=== PATIENT | male | born 1945 | race Caucasian/White ===

== ENCOUNTER 2017-02-08 05:01 | Emergency (ER) | payer OTHER ==
[~2017-02-08] VITALS: Ht 188 cm; Wt 122.2 kg
[~2017-02-08 05:01] MED LIST: ALL DAY ALLERGY10 M2 PO; ALTACE10 MG PO; ASPIR 8181 MG PO; ASPIR-LOW81 MG PO; FOLIC ACID1 MG PO; LIPITOR20 MG PO; LOPRESSOR25 MG PO; METOPROLOL TART25 MG PO; NIASPAN,SLO-N1000 MG PO; VITAMIN D31000 UNI2 PO
[2017-02-08] MEDS ORDERED: AFRIN,GENASAL D15 ML BOTH NARES (06:14)
[2017-02-08] MEDS ORDERED: AUGMENTIN875 MG PO (06:14)
[2017-02-08] MEDS ORDERED: TESSALON PERLE100 MG PO (06:14)
[2017-02-08 07:17] VITALS: BP 139/68
== END 2017-02-08 07:19 | disposition home or self-care (01) ==
LOC: EME 05:01
DX: B34.9 Viral infection, unspecified (principal); J01.90 Acute sinusitis, unspecified; J02.9 Acute pharyngitis, unspecified; R05 Cough; I10 Essential (primary) hypertension; E78.5 Hyperlipidemia, unspecified; Z95.1 Presence of aortocoronary bypass graft; Z79.82 Long term (current) use of aspirin; Z87.891 Personal history of nicotine dependence
CPT/HCPCS: 70360; 71020; 87651 90; 99281; 99284

== ENCOUNTER 2017-12-09 23:23 | Inpatient (IN) | payer OTHER ==
[~2017-12-09] VITALS: Ht 188 cm; Wt 127.7 kg
[~2017-12-09 23:23] MED LIST changes: +AFRIN,GENASAL D15 ML BOTH NARES; +AUGMENTIN875 MG PO; +TESSALON PERLE100 MG PO
[2017-12-10 00:05] LABS: HEMATOCRIT 43.7 % (38.0-50.0); HEMOGLOBIN 15.4 G/DL (12.5-16.6); MCH 30.6 PG (29.0-34.0); MCHC 35.2 G/DL (30.0-36.0); MCV 86.9 FL (86-99); PLATELET COUNT 169 K/uL (156-360); RBC DIS.WIDTH-SD 40.9 % (39-53); RED BLOOD COUNT 5.03 M/uL (4.00-5.50); WHITE BLOOD COUNT 9.7 K/uL (4.1-10.2)
[2017-12-10 00:14] LABS: ALBUMIN 4.1 g/dL (3.2-4.8); CHLORIDE 107 mEq/L (99-109); POTASSIUM 3.8 mEq/L (3.7-5.4); SODIUM 142 mEq/L (136-147)
[2017-12-10 00:16] LABS: GLUCOSE 129 mg/dL (70-99); TOTAL PROTEIN 6.4 g/dL (6.4-8.3)
[2017-12-10 00:18] LABS: TOTAL BILIRUBIN 3.3 mg/dL (0.0-1.0)
[2017-12-10 00:20] LABS: ALKALINE PHOSPHATASE 131 IU/L (3-129); CREATININE 0.9 mg/dL (0.6-1.3); GFR ESTIMATE (CALCULATED) > 59 mL/min/ (58.99-99999)
[2017-12-10 00:21] LABS: AST (GOT) 225 IU/L (2-34); UREA NITROGEN (BUN) 21 mg/dL (9-23)
[2017-12-10 00:22] LABS: DIRECT BILIRUBIN 2.1 mg/dL (0.0-0.3)
[2017-12-10 00:23] LABS: ALT (GPT) 154 IU/L (3-49); LIPASE 39 U/L (1.0-51.0)
[2017-12-10 00:38] LABS: APPEARANCE CLEAR ((CLEAR)); BILIRUBIN NEGATIVE; BLOOD NEGATIVE; COLOR YELLOW ((YELLOW)); GLUCOSE (STRIP) NEGATIVE; KETONES NEGATIVE; LEUKOCYTES NEGATIVE; NITRITE NEGATIVE; PROTEIN (STRIP) NEGATIVE; SPECIFIC GRAVITY 1.016 (1.000-1.030); UCUL ADDED? NO
[2017-12-10] MEDS ORDERED: ASCORBIC ACID500 M3 PO (01:26)
[2017-12-10] MEDS ORDERED: VITAMIN E100 UNIT PO (01:26)
[2017-12-10] MEDS ORDERED: CYANOCOBALAM1000 MCG PO (01:26)
[2017-12-10] MEDS ORDERED: DIOVAN HCT 11 TABLET PO (01:26)
[2017-12-10 03:55] VITALS: BP 125/61
[2017-12-10 05:27] LABS: HEMATOCRIT 41.4 % (38.0-50.0); MCH 30.7 PG (29.0-34.0); MCHC 33.8 G/DL (30.0-36.0); MCV 90.8 FL (86-99); PLATELET COUNT 165 K/uL (156-360); RBC DIS.WIDTH-CV 13.2 % (11.8-14.6); RBC DIS.WIDTH-SD 44.1 % (39-53); RED BLOOD COUNT 4.56 M/uL (4.00-5.50); WHITE BLOOD COUNT 13.2 K/uL (4.1-10.2)
[2017-12-10 05:52] LABS: ALBUMIN 3.5 G/DL (3.2-4.8); ALKALINE PHOSPHATASE 91 IU/L (3-129); ALT (GPT) 179 IU/L (3-49); AST (GOT) 236 IU/L (2-34); CHLORIDE 107 MEQ/L (99-109); CREATININE 1.2 MG/DL (0.6-1.3); DIRECT BILIRUBIN 0.9 mg/dL (0.0-0.3); GFR ESTIMATE (CALCULATED) > 59 mL/min/ (58.99-99999); GLUCOSE 110 mg/dL (70-99); POTASSIUM 4.5 MEQ/L (3.7-5.4); SODIUM 143 MEQ/L (136-147); TOTAL BILIRUBIN 3.6 MG/DL (0.0-1.0); TOTAL PROTEIN 5.3 G/DL (6.4-8.3); UREA NITROGEN (BUN) 23 mg/dL (9-23)
[2017-12-10 07:57] VITALS: BP 121/57
[2017-12-10 15:57] VITALS: BP 134/63
[2017-12-10 19:51] VITALS: BP 114/62
[2017-12-10 23:46] VITALS: BP 117/57
[2017-12-11 06:08] LABS: BASOPHIL (%) 0.2 % (0-1); EOSINOPHIL COUNT 0.2 K/uL (0-0.3); HEMATOCRIT 38.9 % (38.0-50.0); HEMOGLOBIN 12.8 G/DL (12.5-16.6); IMMATURE GRANULOCYTE (%) 0.4 % (0.0-0.7); LYMPHOCYTE (%) 4.9 % (15-42); LYMPHOCYTE COUNT 0.6 K/uL (1.0-2.8); MCHC 32.9 G/DL (30.0-36.0); MCV 91.3 FL (86-99); MONOCYTE (%) 12.8 % (3-12); MONOCYTE COUNT 1.5 K/uL (0-0.8); NEUTROPHIL (%) 79.7 % (45-76); NEUTROPHIL COUNT 9.6 K/uL (1.8-6.4); PLATELET COUNT 144 K/uL (156-360); RBC DIS.WIDTH-SD 47.3 % (39-53); RED BLOOD COUNT 4.26 M/uL (4.00-5.50); WHITE BLOOD COUNT 12.1 K/uL (4.1-10.2)
[2017-12-11 06:46] LABS: ALBUMIN 3.2 G/DL (3.2-4.8); ALKALINE PHOSPHATASE 79 IU/L (3-129); ALT (GPT) 210 IU/L (3-49); AST (GOT) 154 IU/L (2-34); CHLORIDE 111 MEQ/L (99-109); CREATININE 1.2 MG/DL (0.6-1.3); GFR ESTIMATE (CALCULATED) > 59 mL/min/ (58.99-99999); GLUCOSE 117 mg/dL (70-99); POTASSIUM 4.1 MEQ/L (3.7-5.4); SODIUM 143 MEQ/L (136-147); UREA NITROGEN (BUN) 23 mg/dL (9-23)
[2017-12-11 06:51] LABS: TOTAL BILIRUBIN 6.5 MG/DL (0.0-1.0)
[2017-12-11 08:06] VITALS: BP 159/74
[2017-12-11] MEDS ORDERED: AUGMENTIN875 MG PO (15:26)
[2017-12-11 15:37] VITALS: BP 132/70
== END 2017-12-11 17:06 | disposition home or self-care (01) | DRG 445 ==
LOC: EME 23:23 → EDOF 12-10 02:48 → 3EAST 12-10 02:48 → ENRESERV 12-10 02:52 → 3EAST 12-10 03:40
PROVIDERS: Emergency Medicine; Hospitalist; Internal Medicine; Internal Medicine Gastroenterology
DX: K80.31 Calculus of bile duct with cholangitis, unspecified, with obstruction (principal); E78.5 Hyperlipidemia, unspecified; M19.90 Unspecified osteoarthritis, unspecified site; I10 Essential (primary) hypertension; Z95.1 Presence of aortocoronary bypass graft; Z90.49 Acquired absence of other specified parts of digestive tract; Z87.891 Personal history of nicotine dependence; I25.10 Atherosclerotic heart disease of native coronary artery without angina pectoris; E66.9 Obesity, unspecified; Z80.9 Family history of malignant neoplasm, unspecified; Z82.49 Family history of ischemic heart disease and other diseases of the circulatory system; E87.2 Acidosis; Z68.36 Body mass index [BMI] 36.0-36.9, adult
CPT/HCPCS: 74177; 74328; 80048; 80048 91; 80053; 80076; 81003; 82948; 83605; 83690; 85025; 85027; 87040; 87081; 99281; 99285; C1757; C1769; C2625; J1100; J1644; J1885; J2405; J2543; J7030; J7050; J7643; S0028

== ENCOUNTER → 2018-01-14 | Outpatient (CLI) | payer OTHER ==
[~2018-01-14] VITALS: Ht 188 cm; Wt 114.3 kg
[~2018-01-14] MED LIST changes: +ASCORBIC ACID500 M3 PO; +CYANOCOBALAM1000 MCG PO; +DIOVAN HCT 11 TABLET PO; +VITAMIN E100 UNIT PO
== END | disposition home or self-care (01) ==
LOC: AMB 01-06 12:00
DX: K80.50 Calculus of bile duct without cholangitis or cholecystitis without obstruction (principal); R17 Unspecified jaundice; K57.10 Diverticulosis of small intestine without perforation or abscess without bleeding; Z90.49 Acquired absence of other specified parts of digestive tract; I10 Essential (primary) hypertension; I25.10 Atherosclerotic heart disease of native coronary artery without angina pectoris; Z82.49 Family history of ischemic heart disease and other diseases of the circulatory system; Z88.5 Allergy status to narcotic agent; E66.9 Obesity, unspecified; Z95.1 Presence of aortocoronary bypass graft
CPT/HCPCS: 74328; 87081; C1757; J2405; J7643